=== PATIENT | male | born 1945 | race Caucasian/White ===

== ENCOUNTER 2016-11-18 12:53 | Emergency (ER) | payer MEDICARE, OTHER ==
[2016-11-18 13:27] VITALS: BP 142/75; PULSE 93; RESP 16; TEMP 98.2; O2SAT 100
--- NOTE | 2016-11-18 15:32 | ED PDOC ---
HPI: CCC, URI, Sore Throat Time Seen by Provider: 11/18/16 15:09 Chief Complaint (Nursing): ENT Problem Chief Complaint (Provider): Impacted cerumen History Per: Patient History/Exam Limitations: no limitations Have you had recent travel within the past 21 days to any of the following countries: [place], [place], [place] or [place]?: No Onset/Duration Of Symptoms: Days (3) Current Symptoms Are (Timing): Still Present Location Of Pain: Ear(s) Sick Contacts (Context): None Associated Symptoms: denies: Fever, Chills Ear Symptoms: Left: Ear Pain, Decreased Hearing Additional History Per: Patient Additional Complaint(s): The pt is a 71yo male, presents to the ED for evaluation of left ear pain for the past 3 days. Pt reports she has hx of impacted cerumen, states he attempted to remove cerumen form his ear further irritating his ear. Additionally reports decreased hearing in his left ear. He denies any fever, chills, ear drainage. Pt offers no additional medical complaints. Past Medical History Reviewed: Historical Data, Nursing Documentation, Vital Signs Vital Signs: Last Vital Signs Temp 98.2 F 11/18/16 13:24 Pulse 93 H 11/18/16 13:24 Resp 16 11/18/16 13:24 BP 142/75 11/18/16 13:24 Pulse Ox 100 11/18/16 15:38 - Medical History PMH: No Chronic Diseases Denies: Chronic Kidney Disease - Surgical History Surgical History: No Surg Hx - Family History Family History: States: Unknown Family Hx - Social History Current smoker - smoking cessation education provided: No Alcohol: None Drugs: Denies - Immunization History Hx Tetanus Toxoid Vaccination: No Hx Influenza Vaccination: No Hx Pneumococcal Vaccination: No - Home Medications Home Medications: Ambulatory Orders Medication Instructions Recorded Amoxicillin [Amoxil 250 mg Cap] 250 mg PO BID #14 cap 11/18/16 - Allergies Allergies/Adverse Reactions: Allergies Allergy/AdvReac Type Severity Reaction Status Date / Time No Known Allergies Allergy Verified 11/18/16 13:23 Review of Systems ROS Statement: Except As Marked, All Systems Reviewed And Found Negative Constitutional: Negative for: Fever, Chills ENT: Positive for: Ear Pain (left) Physical Exam - Reviewed Nursing Documentation Reviewed: Yes Vital Signs Reviewed: Yes - Physical Exam Appears: Positive for: Well, Non-toxic, No Acute Distress Head Exam: Positive for: ATRAUMATIC, NORMAL INSPECTION, NORMOCEPHALIC Skin: Positive for: Normal Color, Warm, DRY Eye Exam: Positive for: Normal appearance ENT: Positive for: TM Is/Are (impacted cerumen noted, no tragal tenderness, mastoid tenderness, or pinna swelling noted. After serumen was removed, left TM erythematous with associated canal swelling and mild drainage noted.) Neck: Positive for: Normal, Supple Cardiovascular/Chest: Positive for: Regular Rate, Rhythm Respiratory: Positive for: Normal Breath Sounds. Negative for: Respiratory Distress Neurologic/Psych: Positive for: Alert, Oriented - ECG O2 Sat by Pulse Oximetry: 100 (RA) Pulse Ox Interpretation: Normal Medical Decision Making Medical Decision Making: Time: Impression: Impacted cerumen Plan: -- Cerumen removed -- Pt to be discharged home with Rx Amoxicillin and instructions to f/u with PCP in 1-2 days. Scribe Attestation: Documented by Violeta Mccann acting as a scribe for ELIDA Pardo Provider Attestation: All medical record entries made by the Scribe were at my direction and personally dictated by me. I have reviewed the chart and agree that the record accurately reflects my personal performance of the history, physical exam, medical decision making, and the department course for this patient. I have also personally directed, reviewed, and agree with the discharge instructions and disposition. Disposition - Clinical Impression Clinical Impression: Cerumen impaction, Otitis media - Patient ED Disposition Is Patient to be Admitted: No Counseled Patient/Family Regarding: Need For Followup - Disposition Disposition: Routine/Home Disposition Time: 12:32 Condition: STABLE Prescriptions: Amoxicillin [Amoxil 250 mg Cap] 250 mg PO BID #14 cap Instructions: Cerumen Impaction (ED)
== END 2016-11-18 15:47 | disposition home or self-care (01) ==
LOC: H.ER 12:53
DX: H66.92 Otitis media, unspecified, left ear (principal); H61.23 Impacted cerumen, bilateral

== ENCOUNTER 2016-12-09 10:58 | Emergency (ER) | payer MEDICARE, OTHER ==
--- NOTE | 2016-12-09 11:25 | ED PDOC ---
HPI: CCC, URI, Sore Throat Time Seen by Provider: 12/09/16 11:22 Chief Complaint (Nursing): ENT Problem Chief Complaint (Provider): ear injury History Per: Patient (71 y/o male here with left ear buzzining noted yesterday. Patient states he was seen recently for ear cerumen and told he had additional otitis. Patient states he currently does not have fever and no loss of hearing but wanted to be sure he did not have return of infection. ) Past Medical History Reviewed: Historical Data, Nursing Documentation, Vital Signs Vital Signs: Last Vital Signs Temp 97 F L 12/09/16 11:03 Pulse 100 H 12/09/16 11:03 Resp BP 143/89 12/09/16 11:03 Pulse Ox 98 12/09/16 11:03 - Medical History PMH: Denies: Chronic Kidney Disease - Family History Family History: States: Unknown Family Hx - Immunization History Hx Tetanus Toxoid Vaccination: No Hx Influenza Vaccination: No Hx Pneumococcal Vaccination: No - Home Medications Home Medications: Ambulatory Orders Medication Instructions Recorded Amoxicillin [Amoxil 250 mg Cap] 250 mg PO BID #14 cap 11/18/16 - Allergies Allergies/Adverse Reactions: Allergies Allergy/AdvReac Type Severity Reaction Status Date / Time No Known Allergies Allergy Verified 11/18/16 13:23 Review of Systems ROS Statement: Except As Marked, All Systems Reviewed And Found Negative Physical Exam - Reviewed Nursing Documentation Reviewed: Yes Vital Signs Reviewed: Yes - Physical Exam Appears: Positive for: Well, Non-toxic, No Acute Distress Head Exam: Positive for: ATRAUMATIC, NORMAL INSPECTION, NORMOCEPHALIC Skin: Positive for: Normal Color, Warm, DRY Eye Exam: Positive for: EOMI, Normal appearance, PERRL ENT: Positive for: TM Is/Are (TM intact, no erythema noted. Decreased cone of light noted TM. Minimal cerumen in external ear. No tragal tenderness noted.). Negative for: Normal ENT Inspection Neck: Positive for: Normal, Painless ROM Cardiovascular/Chest: Positive for: Regular Rate, Rhythm Respiratory: Positive for: CNT, Normal Breath Sounds Gastrointestinal/Abdominal: Positive for: Normal Exam, Bowel Sounds, Soft Back: Positive for: Normal Inspection Extremity: Positive for: Normal ROM Neurologic/Psych: Positive for: Alert, Oriented - ECG O2 Sat by Pulse Oximetry: 98 Disposition - Clinical Impression Clinical Impression: Tinnitus - Patient ED Disposition Is Patient to be Admitted: No - Disposition Referrals: Darian Euceda MD [Staff Provider] - [facility] [Outside] Disposition: Routine/Home Disposition Time: 11:25 Condition: FAIR Instructions: Tinnitus (ED)
[2016-12-09 12:54] VITALS: BP 143/89; PULSE 100; TEMP 97; O2SAT 98; BMI 24.3
== END 2016-12-09 11:46 | disposition home or self-care (01) ==
LOC: H.ER 10:58
DX: H93.19 Tinnitus, unspecified ear (principal)

== ENCOUNTER 2018-01-01 11:14 | Emergency (ER) | payer MEDICARE ==
[2018-01-01 11:15] VITALS: BMI 22.4
[2018-01-01 11:27] VITALS: RESP 20
--- NOTE | 2018-01-01 12:10 | ED PDOC ---
HPI: Allergic Reaction Time Seen by Provider: 01/01/18 11:55 Chief Complaint (Nursing): Abnormal Skin Integrity Chief Complaint (Provider): Abnormal Skin Integrity History Per: Patient History/Exam Limitations: no limitations Onset/Duration Of Symptoms: Days Current Symptoms Are (Timing): Still Present Additional Complaint(s): 72 y/o male presents to the ED complaining of itching in the perineal area with subsequent bleeding noted after scratching. Patient prescribed fungal cream in the past for similar rash. PMD: None Provided Past Medical History Reviewed: Historical Data, Nursing Documentation, Vital Signs Vital Signs: Last Vital Signs Temp 97.8 F 01/01/18 11:25 Pulse 84 01/01/18 11:25 Resp 20 01/01/18 11:25 BP 164/94 H 01/01/18 11:25 Pulse Ox 99 01/01/18 11:25 - Medical History PMH: No Chronic Diseases Denies: Chronic Kidney Disease - Surgical History Surgical History: No Surg Hx - Family History Family History: States: Unknown Family Hx - Immunization History Hx Tetanus Toxoid Vaccination: No Hx Influenza Vaccination: No Hx Pneumococcal Vaccination: No - Home Medications Home Medications: Ambulatory Orders Medication Instructions Recorded Amoxicillin [Amoxil 250 mg Cap] 250 mg PO BID #14 cap 11/18/16 Azithromycin [Z-Dontae] 250 mg PO ASDIR #6 tab 06/02/17 Oseltamivir [Tamiflu] 75 mg PO BID #10 cap 06/02/17 guaiFENesin/Dextromethorphan 1 tab PO Q6 PRN #20 tab 06/02/17 [guaiFENesin/DM 600-30 mg] Butenafine HCl [Lotrimin Ultra] 0.5 gm TP BID #30 cream..g. 01/01/18 - Allergies Allergies/Adverse Reactions: Allergies Allergy/AdvReac Type Severity Reaction Status Date / Time No Known Allergies Allergy Verified 11/18/16 13:23 Review of Systems Skin: Positive for: Rash (ITCHING) Physical Exam - Reviewed Nursing Documentation Reviewed: Yes Vital Signs Reviewed: Yes - Physical Exam Appears: Positive for: No Acute Distress Head Exam: Positive for: ATRAUMATIC Skin: Negative for: Rash (No obvious rash noted, no active bleeding noted.) Eye Exam: Positive for: Normal appearance, EOMI, PERRL Neck: Positive for: Normal, Painless ROM Cardiovascular/Chest: Negative for: Bradycardia, Tachycardia Respiratory: Negative for: Accessory Muscle Use, Respiratory Distress Extremity: Positive for: Normal ROM. Negative for: Pedal Edema, Deformity Neurologic/Psych: Positive for: Alert, Oriented. Negative for: Motor/Sensory Deficits - ECG O2 Sat by Pulse Oximetry: 99 (RA) Pulse Ox Interpretation: Normal - Progress ED Course And Treament: Scribe Attestation: Documented by Yunior Luque, acting as a scribe for Rosa Smith PA-C. Provider Scribe Attestation: All medical record entries made by the Scribe were at my direction and personally dictated by me. I have reviewed the chart and agree that the record accurately reflects my personal performance of the history, physical exam, medical decision making, and the department course for this patient. I have also personally directed, reviewed, and agree with the discharge instructions and disposition. Disposition - Clinical Impression Clinical Impression: Tinea cruris - Patient ED Disposition Is Patient to be Admitted: No - Disposition Referrals: Piter Mazariegos DO [Staff Provider] - Disposition: Routine/Home Disposition Time: 12:14 Condition: STABLE Prescriptions: Butenafine HCl [Lotrimin Ultra] 0.5 gm TP BID #30 cream..g. Instructions: Ynesck Itch Forms: [facility] (French)
[2018-01-01 12:50] VITALS: BP 141/63; PULSE 74; TEMP 98.4; O2SAT 98
== END 2018-01-01 12:47 | disposition home or self-care (01) ==
LOC: H.ER 11:14
DX: B35.6 Tinea cruris (principal)

== ENCOUNTER 2018-09-04 09:28 | Emergency (ER) | payer MEDICARE ==
[2018-09-04 09:33] VITALS: TEMP 98.5
[2018-09-04 09:34] VITALS: BMI 22.7
--- NOTE | 2018-09-04 10:10 | ED PDOC ---
History of Present Illness History of Present Illness: 72 year old male with no past medical history who is presenting to the ED for evaluation of cough and sore throat ongoing for over 2 days. Patient states that he has not had any relief with over the counter medications and denies any fevers, chest pain, shortness of breath or history of smoking. He denies any allergies to medication and offers no other medical complaints at this time. PMD: none provided HPI: Influenza Time Seen by Provider: 09/04/18 09:47 Chief Complaint (Provider): Sore throat, Cough History Per: Patient Exam Limitations: no limitations Onset/Duration Of Symptoms: Days Symptoms include: sore throat, cough. denies: fever Past Medical History Reviewed: Historical Data, Nursing Documentation, Vital Signs Vital Signs: Last Vital Signs Temp 98.5 F 09/04/18 09:32 Pulse 105 H 09/04/18 09:32 Resp 18 09/04/18 09:32 BP 149/97 H 09/04/18 09:32 Pulse Ox 96 09/04/18 09:32 - Medical History PMH: No Chronic Diseases Denies: Chronic Kidney Disease - Surgical History Surgical History: No Surg Hx - Family History Family History: States: Unknown Family Hx - Social History Current smoker - smoking cessation education provided: No Alcohol: None Drugs: Denies - Immunization History Hx Tetanus Toxoid Vaccination: No Hx Influenza Vaccination: No Hx Pneumococcal Vaccination: No - Home Medications Home Medications: Ambulatory Orders Medication Instructions Recorded Amoxicillin [Amoxil 250 mg Cap] 250 mg PO BID #14 cap 11/18/16 Azithromycin [Z-Dontae] 250 mg PO ASDIR #6 tab 06/02/17 Oseltamivir Cap [Tamiflu] 75 mg PO BID #10 cap 06/02/17 guaiFENesin/Dextromethorphan 1 tab PO Q6 PRN #20 tab 06/02/17 [guaiFENesin/DM 600-30 mg] Butenafine HCl [Lotrimin Ultra] 0.5 gm TP BID #30 cream..g. 01/01/18 Azithromycin [Zithromax] 250 mg PO DAILY #4 tab 09/04/18 Ibuprofen [Motrin] 600 mg PO Q6H PRN #20 tab 09/04/18 - Allergies Allergies/Adverse Reactions: Allergies Allergy/AdvReac Type Severity Reaction Status Date / Time No Known Allergies Allergy Verified 11/18/16 13:23 Review of Systems ROS Statement: Except As Marked, All Systems Reviewed And Found Negative Constitutional: Negative for: Fever ENT: Positive for: Throat Pain Cardiovascular: Negative for: Chest Pain Respiratory: Positive for: Cough. Negative for: Shortness of Breath Physical Exam - Reviewed Nursing Documentation Reviewed: Yes Vital Signs Reviewed: Yes - Physical Exam Appears: Positive for: Non-toxic, No Acute Distress Head Exam: Positive for: ATRAUMATIC, NORMAL INSPECTION, NORMOCEPHALIC Skin: Positive for: Normal Color, Warm, DRY Eye Exam: Positive for: EOMI, Normal appearance, PERRL ENT: Positive for: Normal ENT Inspection. Negative for: Pharyngeal Erythema Cardiovascular/Chest: Positive for: Regular Rate, Rhythm. Negative for: Murmur Respiratory: Positive for: Normal Breath Sounds. Negative for: Respiratory Distress Gastrointestinal/Abdominal: Positive for: Normal Exam, Soft. Negative for: Tenderness Back: Positive for: Normal Inspection. Negative for: L CVA Tenderness, R CVA Tenderness Neurological/Psych: Positive for: Awake, Alert, Normal Tone, Oriented. Negative for: Motor/Sensory Deficits Medical Decision Making Medical Decision Making: Time: 10:11 Plan: --VBG Shock Panel --EKG --CMP --CBC --CXR --Blood Culture --Influenza A B --Rapid Strep Accession No. : [id number] Patient Name / ID : ZOË DOMINIQUE / [id number] Exam Date : 09/04/2018 10:01:53 ( Approved ) Study Comment : Sex / Age : M / [id number] Creator : Nia Segura Dictator : Nia Segura Arcgis Developer : [employer] Machine Operator : Nia Segura Approver2 : Report Date : 09/04/2018 11:06:30 My Comment : Date of service: 09/04/2018 HISTORY: Cough COMPARISON: 06/02/2017 TECHNIQUE: Chest PA and lateral views FINDINGS: LUNGS: Bilateral hyperinflation compatible background COPD emphysema. The biapical pleural thickening bilateral upper lobe strandy inte rstitial/fibrotic like changes appear similar. Bibasilar scarring as well. No interval dense consolidation seen. There is equivocal summation of coarse bronchovascular markings and or subtle interval trace patchy infiltrate right mid lung zone PLEURA: No significant pleural effusion identified. No pneumothorax apparent. CARDIOVASCULAR: No aortic atherosclerotic calcification present. Normal cardiac size. No pulmonary vascular congestion. OSSEOUS STRUCTURES: No fracture or lytic lesion. Mild degenerative changes of the thoracic spine and both shoulders noted. Similar appearing benign bone island over left humeral head. VISUALIZED UPPER ABDOMEN: Normal. OTHER FINDINGS: None. IMPRESSION: Right mid lung zone equivocal summation of coarse bronchovascular markings versus subtle interval pleural parenchymal pathology/infiltrate here. Clinical history of cough noted. Consider CT of the chest without contrast for further evaluation. Chronic changes as above. CT Chest: FINDINGS: LUNGS: Biapical pleural thickening with biapical calcified pleural plaques are present. These are slightly asymmetrically prominent in the right posterior hemithorax-just below the level of the aortic arch in this is felt to explain the summation course bronchovascular markings on the recent chest x-ray. No CT suggestion of a infiltrate or mass here noted. Incidentally noted is a approximately 3 to 4 mm right middle lobe solid smoothly marginated nodule perhaps a granuloma. MEDIASTINUM: Unremarkable thoracic aorta. No aneurysm. Normal sized heart. Main pulmonary artery unremarkable. No vascular congestion. Few shotty mediastinal noted densities are present. No lymph nodes suspicious per CT criteria. There is presence of aortic atherosclerotic calcification and mural plaque on cross sectional studies. Coronary artery calcifications present PLEURA: Biapical and bilateral posterior upper lobe pleural thickening findings are more pronounced on the right. No pneumothorax. BONES: No fracture. No destructive lesion. UPPER ABDOMEN: Grossly unremarkable. OTHER FINDINGS: Hiatal hernia with fluid level. IMPRESSION: The recent chest x-ray mid right hemithorax appearance corresponds to summation of slightly greater coarser pulmonary markings here plus the summed up asy mmetrical posterior right pleural thickening/calcified pleural plaque here. Additional biapical pleural thickening with calcified pleural plaques are present. Calcified pleural plaques are compatible with prior asbestosis exposure. No underlying infiltrate or suspicious mass appreciated. Small incidental benign-appearing nodule probably a granuloma in the right middle lobe measuring approximately 3 to 4 mm. No further workup of it is recommended if patient is low risk for lung cancer. If high risk, CT lung 12 month follow-up is optional. Atherosclerotic vascular disease and coronary artery disease. Hiatal hernia 13:55 Patient will be provided a copy of the CT results and findings were explained to him. All questions were answered regarding diagnosis and patient encouraged close follow up with PMD. Scribe Attestation: Documented by Eleonora Mott, acting as a scribe for Cristina Valentine MD. Provider Scribe Attestation: All medical record entries made by the Scribe were at my direction and personally dictated by me. I have reviewed the chart and agree that the record accurately reflects my personal performance of the history, physical exam, medical decision making, and the department course for this patient. I have also personally directed, reviewed, and agree with the discharge instructions and disposition. - Laboratory Results Result Diagrams: 09/04/18 10:25 09/04/18 10:25 - ECG O2 Sat by Pulse Oximetry: 96 (RA) Pulse Ox Interpretation: Normal Disposition - Clinical Impression Clinical Impression: URI (upper respiratory infection) - Disposition Referrals: [facility] [Outside] Disposition: Routine/Home Disposition Time: 13:56 Condition: STABLE Additional Instructions: FOLLOW-UP WITH PMD WITHIN 2 DAYS FOR REEVALUATION. Prescriptions: Azithromycin [Zithromax] 250 mg PO DAILY #4 tab Ibuprofen [Motrin] 600 mg PO Q6H PRN #20 tab PRN Reason: Pain, Moderate (4-7) Instructions: Bacterial Upper Respiratory Infection, Adult Forms: [employer] (Divehi)
[2018-09-04 10:50] LABS: VENOUS BLOOD GAS BASE EXCESS 5.8 mmol/L (0.0-2.0); VENOUS BLOOD GAS PCO2 55 mmHg (40-60); VENOUS BLOOD GAS PO2 22 mm/Hg (30-55); VENOUS BLOOD PH 7.38 (7.32-7.43)
[2018-09-04 10:57] LABS: BASO % 0.4 % (0.0-2.0); EOS # 0.1 K/uL (0.0-0.7); EOS % 1.7 % (0.0-4.0); HEMOGLOBIN 15.8 g/dL (12.0-18.0); LYMPH # 0.9 K/uL (1.0-4.3); LYMPH % 12.6 % (20.0-40.0); MEAN CELL VOLUME 94.6 fl (80.0-94.0); MEAN CORPUSCULAR HEMOGLOBIN 32.5 pg (27.0-31.0); MEAN CORPUSCULAR HGB CONC 34.4 g/dL (33.0-37.0); MEAN PLATELET VOLUME 10.4 fl (7.2-11.7); MONO # 1.2 K/uL (0.0-0.8); MONO % 17.3 % (0.0-10.0); NEUT # 4.7 K/uL (1.8-7.0); NRBC % 0.7 % (0.0-0.0); RBC 4.86 Mil/uL (4.40-5.90); RED CELL DISTRIBUTION WIDTH 13.1 % (11.5-14.5)
[2018-09-04 11:08] LABS: ALB/GLOB RATIO 1.1 (1.0-2.1); ALBUMIN 4.3 g/dL (3.5-5.0); ALT/SGPT 34 U/L (21-72); AST/SGOT 32 U/L (17-59); BLOOD UREA NITROGEN 7 mg/dl (9-20); CALCIUM 9.1 mg/dL (8.4-10.2); GFR NON-AFRICAN AMERICAN > 60
--- NOTE | 2018-09-04 11:10 | RAD ---
Date of service: 09/04/2018 HISTORY: Cough COMPARISON: 06/02/2017 TECHNIQUE: Chest PA and lateral views FINDINGS: LUNGS: Bilateral hyperinflation compatible background COPD emphysema. The biapical pleural thickening bilateral upper lobe strandy interstitial/fibrotic like changes appear similar. Bibasilar scarring as well. No interval dense consolidation seen. There is equivocal summation of coarse bronchovascular markings and or subtle interval trace patchy infiltrate right mid lung zone PLEURA: No significant pleural effusion identified. No pneumothorax apparent. CARDIOVASCULAR: No aortic atherosclerotic calcification present. Normal cardiac size. No pulmonary vascular congestion. OSSEOUS STRUCTURES: No fracture or lytic lesion. Mild degenerative changes of the thoracic spine and both shoulders noted. Similar appearing benign bone island over left humeral head. VISUALIZED UPPER ABDOMEN: Normal. OTHER FINDINGS: None. IMPRESSION: Right mid lung zone equivocal summation of coarse bronchovascular markings versus subtle interval pleural parenchymal pathology/infiltrate here. Clinical history of cough noted. Consider CT of the chest without contrast for further evaluation. Chronic changes as above.
--- NOTE | 2018-09-04 12:33 | CT ---
Date of service: 09/04/2018 PROCEDURE: CT Chest without contrast HISTORY: Abnormal CXR COMPARISON: None available. TECHNIQUE: Contiguous axial images were obtained through the chest without intravenous contrast enhancement. Sagittal and coronal reconstructions were performed. Radiation dose: Total exam DLP = 368.69 mGy-cm. This CT exam was performed using one or more of the following dose reduction techniques: Automated exposure control, adjustment of the mA and/or kV according to patient size, and/or use of iterative reconstruction technique. FINDINGS: LUNGS: Biapical pleural thickening with biapical calcified pleural plaques are present. These are slightly asymmetrically prominent in the right posterior hemithorax-just below the level of the aortic arch in this is felt to explain the summation course bronchovascular markings on the recent chest x-ray. No CT suggestion of a infiltrate or mass here noted. Incidentally noted is a approximately 3 to 4 mm right middle lobe solid smoothly marginated nodule perhaps a granuloma. MEDIASTINUM: Unremarkable thoracic aorta. No aneurysm. Normal sized heart. Main pulmonary artery unremarkable. No vascular congestion. Few shotty mediastinal noted densities are present. No lymph nodes suspicious per CT criteria. There is presence of aortic atherosclerotic calcification and mural plaque on cross sectional studies. Coronary artery calcifications present PLEURA: Biapical and bilateral posterior upper lobe pleural thickening findings are more pronounced on the right. No pneumothorax. BONES: No fracture. No destructive lesion. UPPER ABDOMEN: Grossly unremarkable. OTHER FINDINGS: Hiatal hernia with fluid level. IMPRESSION: The recent chest x-ray mid right hemithorax appearance corresponds to summation of slightly greater coarser pulmonary markings here plus the summed up asymmetrical posterior right pleural thickening/calcified pleural plaque here. Additional biapical pleural thickening with calcified pleural plaques are present. Calcified pleural plaques are compatible with prior asbestosis exposure. No underlying infiltrate or suspicious mass appreciated. Small incidental benign-appearing nodule probably a granuloma in the right middle lobe measuring approximately 3 to 4 mm. No further workup of it is recommended if patient is low risk for lung cancer. If high risk, CT lung 12 month follow-up is optional. Atherosclerotic vascular disease and coronary artery disease. Hiatal hernia
[2018-09-04 14:32] VITALS: BP 130/84; PULSE 90; RESP 20
[2018-09-04 15:51] VITALS: O2SAT 96
--- NOTE | 2018-09-05 00:33 | CARD ---
APPROVED REPORT Date of service: 09/04/2018 EKG Measurement Heart [id number] <Conclusion> Normal sinus rhythm Normal ECG
== END 2018-09-04 14:33 | disposition home or self-care (01) ==
LOC: H.ER 09:28
DX: J06.9 Acute upper respiratory infection, unspecified (principal)